=== PATIENT | male | born 1985 | race Hispanic/Latino ===

== ENCOUNTER 2021-12-12 10:13 | Emergency (ER) | payer OTHER ==
[~2021-12-12] VITALS: Ht 175.3 cm; Wt 147.4 kg
[2021-12-12] MEDS ORDERED: ACETAMINOPHEN500 MG PO (10:47)
[2021-12-12 12:41] VITALS: BP 183/115
== END 2021-12-12 12:44 | disposition home or self-care (01) ==
LOC: FSED 10:27
DX: S05.12XA Contusion of eyeball and orbital tissues, left eye, initial encounter (principal); S05.11XA Contusion of eyeball and orbital tissues, right eye, initial encounter; W01.198A Fall on same level from slipping, tripping and stumbling with subsequent striking against other object, initial encounter; Y92.008 Other place in unspecified non-institutional (private) residence as the place of occurrence of the external cause; I10 Essential (primary) hypertension; G47.30 Sleep apnea, unspecified
CPT/HCPCS: 70486; 99283